=== PATIENT | female | born 1940 | race Caucasian/White ===

== ENCOUNTER 2016-09-18 06:17 | Inpatient (IN) | payer OTHER ==
[~2016-09-18] VITALS: Ht 160 cm; Wt 78.0 kg
[~2016-09-18 06:17] MED LIST: ALPRAZOLAM0.5 M4 PO; CALCIUM600 M2 PO; FISH OIL 1,0001 EACH PO; LEVOTHYROXINE75 MCG PO; MULTI-DAY VITA1 EACH PO; NEURONTIN800 M2 PO; OMEPRAZOLE20 M2 PO; TRIAMTERENE-HC1 EAC3 PO
--- NOTE | 2016-09-18 06:25 | ED CARDIAC/CP/PALPITATIONS ---
History of Present Illness General Chief Complaint: Chest Pain Stated Complaint: CHEST PAIN Source: patient, family Exam Limitations: no limitations Vital Signs & Intake/Output Vital Signs & Intake/Output Vital Signs Date Time Temp Pulse Resp B/P Pulse O2 O2 Flow FiO2 Ox Delivery Rate 09/18 0915 78 18 161/72 09/18 0701 97.8 57 18 178/80 09/18 0637 97.8 57 20 178/80 99 Room Air Allergies Coded Allergies: codeine (UNKNOWN 09/29/15) Triage Nurses Notes Reviewed? yes Onset: Gradual Duration: hour(s): Timing: recent history Location: central Radiation: no radiation Activities at Onset: sleep Prior Chest Pain/Card Workup: no prior chest pain Associated Symptoms: chest wall pain HPI: 76-year-old woman with a history of hypertension and fibromyalgia presents with parasternal chest pain since 3 AM (the past 3-1/2 hours). She notes that the pain feels sharp in nature. It is nonradiating. She has no shortness of breath, back pain, diaphoresis. She is otherwise well. (YULISSA DE LA ROSA,DANIELA Mayes) Reconcile Medications Alprazolam 0.5 MG TABLET 1 TAB PO PRN ANXIETY (Reported) Amlodipine Besylate 5 MG TABLET 1 TAB PO DAILY HEART (Reported) Calcium Carbonate (Calcium) 600 MG TABLET 1 TAB PO DAILY SUPPLEMENT (Reported ) Gabapentin (Neurontin) 800 MG TABLET 1 TAB PO BID UNKNOWN (Reported) Glucosamine/Chondroitin/Vit D3 (Gtvjlpwl-Rufcld-Ohb D3 Tab) 750 MG-600 MG-500 UNIT TABLET 1 TAB PO DAILY SUPPLEMENT (Reported) Levothyroxine Sodium 75 MCG TABLET 1 TAB PO DAILY AC THYROID (Reported) Multivitamin (Multi-Day Vitamins) 1 EACH TABLET 1 TAB PO DAILY SUPPLEMENT ( Reported) [place]-3 Fatty Acids/Fish Oil (Fish Oil 1,000 MG Capsule) 340 MG-1,000 MG CAPSULE 1 CAP PO DAILY SUPPLEMENT (Reported) Omeprazole 20 MG CAPSULE.DR 1 CAP PO DAILY REFLUX (Reported) Triamterene/Hydrochlorothiazid (Triamterene-Hctz 37.5-25 MG Cp) 1 EACH CAPSULE 1 CAP PO DAILY BP (Reported) (LIANA DE LA ROSA,SULMA) Past History Travel History Traveled to [place] past 21 day No Medical History Any Pertinent Medical History? 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 No (YULISSA DE LA ROSA,DANIELA Mayes) Review of Systems Review of Systems Constitutional: Reports: no symptoms. EENTM: Reports: no symptoms. Respiratory: Reports: no symptoms. Cardiovascular: Reports: no symptoms. GI: Reports: no symptoms. Genitourinary: Reports: no symptoms. Musculoskeletal: Reports: no symptoms. Skin: Reports: no symptoms. Neurological/Psychological: Reports: no symptoms. Hematologic/Endocrine: Reports: no symptoms. Immunologic/Allergic: Reports: no symptoms. All Other Systems: Reviewed and Negative (YULISSA DE LA ROSA,DANIELA Mayes) Physical Exam Physical Exam General Appearance: well developed/nourished, mild distress Head: atraumatic, normal appearance Eyes: Bilateral: normal appearance. Ears, Nose, Throat: normal pharynx, normal ENT inspection Neck: normal inspection, supple, full range of motion Respiratory: normal breath sounds, no respiratory distress, parasternal chest wall tenderness. Cardiovascular: regular rate/rhythm Gastrointestinal: normal bowel sounds, soft, non-tender, no organomegaly Back: normal inspection, normal range of motion Extremities: normal inspection, normal capillary refill, normal range of motion, no edema Neurologic/Psych: no motor/sensory deficits, awake, alert, oriented x 3 Skin: intact, normal color Core Measures ACS in differential dx? No Severe Sepsis Present: No Septic Shock Present: No (YULISSA DE LA ROSA,DANIELA Mayes) Core Measures ASA ordered for poss ACS? Yes-ordered (SULMA GAINES MD) Progress Differential Diagnosis: AMI, CHF/pulm edema, costochondritis, pneumonia Plan of Care: Orders Procedure Date/time Status MAGNESIUM 09/19 0600 Active BASIC ELECTROLYTES PLUS BUN&CR 09/19 0600 Active Regular Diet 09/18 L Active TROPONIN LEVEL 09/18 1700 Active EKG 09/18 1700 Active TROPONIN LEVEL 09/18 1200 Active EKG 09/18 1200 Active OXYGEN SETUP (GEN) 09/18 0925 Active Saline Lock 09/18 0925 Active Activity/Ambulation 09/18 0925 Active Pathway - chart 09/18 0854 Active Lab Add-on Test 09/18 0854 Active Code Status 09/18 0854 Active ECHOCARDIOGRAM 09/18 0854 Active EKG 09/18 0821 Active Patient Data 09/18 0800 Active Admit to inpatient 09/18 0755 Active THYROID STIMULATING HORMONE 09/18 0647 Active MAGNESIUM 09/18 0647 Active FREE T4 09/18 0647 Active TROPONIN LEVEL 09/18 0626 Active PARTIAL THROMBOPLASTIN TIME 09/18 0626 Complete PROTHROMBIN TIME 09/18 0626 Complete D-DIMER 09/18 0626 Complete COMPREHENSIVE METABOLIC PANEL 09/18 0626 Active CBC WITHOUT DIFFERENTIAL 09/18 0626 Complete B-TYPE NATRIURETIC PEP (BNP) 09/18 0626 Active EKG 09/18 0618 Active Pathway - chart 09/18 UNK Active House Staff 09/18 UNK Active Weight 09/18 UNK Active VTE Mechanical Prophylaxis 09/18 UNK Active Vital Signs 09/18 UNK Active Intake & Output 09/18 UNK Active CASE MANAGEMENT CONSULT 09/18 UNK Active Current Medications Sig/Omid Start time Last Medication Dose Stop Time Status Admin Amlodipine Besylate 5 MG DAILY 09/19 1000 UNVr (Norvasc) Aspirin 81 MG DAILY 09/19 1000 UNVr (Aspirin) Triamterene/HCTZ 1 CAP DAILY 09/19 1000 UNVr (Dyazide) Gabapentin 800 MG BID 09/18 1000 UNVr (Neurontin) Multivitamins 1 TAB DAILY 09/18 1000 UNVr Therapeutic (Theragran-M Vitamins Tabs) Omeprazole 20 MG DAILY 09/18 1000 UNVr (Prilosec) Acetaminophen 650 MG Q6P PRN 09/18 0900 UNVr (Tylenol) Alprazolam 0.5 MG DAILY NEEDED 09/18 0900 UNVr (Xanax) 09/25 0859 Ibuprofen 600 MG Q6P PRN 09/18 0900 UNVr (Motrin) Potassium Chloride 10 MEQ Q1H 09/18 0900 AC 09/18 1001 Levothyroxine Sodium 0.075 MG DAILY AC 09/18 0856 UNVr (Synthroid) Laboratory Tests 09/18/16 0647: Anion Gap 11, Estimated GFR > 60, BUN/Creatinine Ratio 26.7 H, Glucose 129 H, Calcium 9.4, Magnesium Pending, Total Bilirubin 0.6, AST 30, ALT 34, Alkaline Phosphatase 183 H, Troponin I 0.39 *H, Gsu-K-Zxebvsdjvqp Pept 316 H, Total Protein 7.2, Albumin 4.2, Globulin 3.0, Albumin/Globulin Ratio 1.4, TSH Pending, Free T4 Pending, PT 10.9, INR 1.04, APTT 32, D-Dimer 278 H, CBC w Diff NO MAN DIFF REQ, RBC 4.97, MCV 91.6, MCH 30.7, RDW 12.9, MPV 7.9, Gran % 81.2 H, Lymphocytes % 11.1 L, Monocytes % 5.7, Eosinophils % 1.6, Basophils % 0.4, Absolute Granulocytes 5.6, Absolute Lymphocytes 0.8 L, Absolute Monocytes 0.4, Absolute Eosinophils 0.1, Absolute Basophils 0, PUBS MCHC 33.5 Diagnostic Imaging: Viewed by Me: Radiology Read. Discussed w/RAD: Radiology Read. Initial ED EKG: normal axis, normal intervals, normal p-waves, normal QRS complex, normal sinus rhythm Hand-Off Endorsed To: SULMA GAINES MD Endorsed Time: 0700 Pending: labs, Xray (DANIELA DUENAS MD) Repeat EKG: changed (t wave flat 1,L, v2-6) Rhythm Strip: normal sinus rhythm Comments: Diagnostics reviewed and discussed with patient. Cardiology consulted and will hospitalize for NSTEMI. (SULMA GAINES MD) Departure Departure Disposition: STILL A PATIENT Referrals: ROBIN DE LA ROSA,NILESH Monteiro (PCP/Family) Departure Forms: Customer Survey General Discharge Information (DANIELA DUENAS MD) Departure Time of Disposition: 0750 Condition: Fair Clinical Impression Primary Impression: NSTEMI (non-ST elevated myocardial infarction) Secondary Impressions: Chest pain, Hypertension Admission Note Spoke With: NÉSTOR DE LA ROSA PhD,RIVER Wallace Documentation of Exam: Documentation of any treatments & extenuating circumstances including Concerns Regarding Discharge (functional status, medication knowledge or non-compliance, living conditions, etc.) that warrant an admission rather than observation: cardiac monitoring serial lab exam IV heparin cardiology evaluation echocardiogram medication adjustment continuing care discharge planning (SULMA GAINES MD) Critical Care Note Critical Care Note Critical Care Time: non-applicable (DANIELA DUENAS MD) Critical Care Note Critical Care Time: 30-74 min (40) (SULMA GAINES MD)
--- NOTE | 2016-09-18 06:44 | NUR ---
PT TO ED WITH COMPLAINTS OF CP THAT WOKE HER UP THIS MORNING. PT STATES THE PAIN WAS IN HER ENTIRE CHEST AND EPIGASTRIC AREA. PT ALSO STATES THAT SHE HAD SOME FLATULANCE AROUND THIS TIME. PT REPORTS THAT SHE TOOK MAALOX AND GAS PILLS AT HOME WITH NO RELIEF.
--- NOTE | 2016-09-18 07:02 | NUR ---
PT MEDICATED PER EMAR.
--- NOTE | 2016-09-18 07:03 | RADIOLOGY REPORT ---
EXAMINATION: XR PORTABLE CHEST CLINICAL INFORMATION: Chest pain. COMPARISON: None TECHNIQUE: Portable AP view of the chest was obtained. 6:45 AM FINDINGS: No significant abnormality is noted involving the heart, lungs, mediastinum, bony thorax or soft tissues. IMPRESSION: No acute abnormality of the chest.
[2016-09-18 07:09] LABS: ABSOLUTE BASOPHIL COUNT 0 /CUMM (0.0-0.2); ABSOLUTE EOSINOPHIL COUNT 0.1 /CUMM (0.0-0.7); ABSOLUTE GRANULOCYTE CT 5.6 /CUMM (1.4-6.5); ABSOLUTE LYMPH COUNT 0.8 /CUMM (1.2-3.4); ABSOLUTE MONOCYTE COUNT 0.4 /CUMM (0.10-0.60); BASOPHIL % 0.4 % (0.0-2.0); EOSINOPHIL % 1.6 % (0-5); GRANULOCYTE % 81.2 % (42.2-75.2); HEMATOCRIT 45.5 % (37-47); MEAN CORPUSCULAR HGB 30.7 PG (27.0-31.0); MEAN CORPUSCULAR HGB CONC 33.5 G/DL (33.0-37.0); MEAN CORPUSCULAR VOLUME 91.6 FL (81.0-99.0); MEAN PLATELET VOLUME 7.9 FL (7.4-10.4); PLATELET COUNT 222 /CUMM (130-400); RBC DISTRIBUTION WIDTH 12.9 % (11.5-14.5); RED BLOOD CELL CT 4.97 /CUMM (4.20-5.40); WHITE BLOOD CELL COUNT 6.9 /CUMM (4.8-10.8)
--- NOTE | 2016-09-18 07:16 | NUR ---
REPORT GIVEN TO ISAEL CONN.
[2016-09-18 07:21] LABS: PT 10.9 SEC (9.4-12.5); PTT 32 SEC (25-37)
--- NOTE | 2016-09-18 07:24 | NUR ---
MORE BLANKETS GIVEN AT THIS TIME, CLOTHING PUT INTO BELONGINGS BAG.
--- NOTE | 2016-09-18 07:32 | NUR ---
PT C/O NAUSEA BASIN GIVEN, REMOTE FOR TV ALSO GIVEN AT THIS TIME.
--- NOTE | 2016-09-18 07:43 | NUR ---
CRITICAL TEST RESULTS [id number] KARLI LYONS 76 F TESTS AND RESULTS: TROP 0.39 Results received and read back by: ADAN CARDENAS Results received date and time: 09/18/16 0743 The following provider was notified of the results, and read the results back: DR. GAINES Notified date and time: 09/18/16 at 0740
[2016-09-18] MEDS ORDERED: GLUCOSAM-CHOND1 EACH PO (08:12)
[2016-09-18] MEDS ORDERED: AMLODIPINE BESYL5 M1 PO (08:13)
--- NOTE | 2016-09-18 08:32 | NUR ---
DR ALEXANDER AT BEDSIDE FOR EVAL, SECOND EKG DONE BY THIS MST.
--- NOTE | 2016-09-18 08:50 | History & Physical ---
General Information and HPI MD Statement: I have seen and personally examined KARLI LYONS and documented this H&P. The patient is a 76 year old F who presented with a patient stated chief complaint of [chest pain]. History of Present Illness: This is a 76-year-old lady with a past history significant for hypertension, anxiety, hypothyroidism and GERD that presented to the emergency room after waking up at 3 AM resenting with chest pain. Patient states that around 3 AM the chest pain woke her up she had this dull 7 out of 10 nonradiating pain. Did admit to having some diaphoresis. Subsequently she came to the emergency room and was found to have a positive troponin and EKG suggestive of NSTEMI. In the ER she was started on a heparin drip, sublingual nitroglycerin which rapidly alleviated the pain, Vasotec injection because of hypertension and her daily schedule doses of medications. She has been given a full aspirin and Plavix by the ER staff. At present she remains chest pain-free. She denies any diagnosed history of coronary artery disease. Allergies/Medications Allergies: Coded Allergies: codeine (UNKNOWN 09/29/15) Home Med list Alprazolam 0.5 MG TABLET 1 TAB PO PRN ANXIETY (Reported) Amlodipine Besylate 5 MG TABLET 1 TAB PO DAILY HEART (Reported) Calcium Carbonate (Calcium) 600 MG TABLET 1 TAB PO DAILY SUPPLEMENT (Reported ) Gabapentin (Neurontin) 800 MG TABLET 1 TAB PO BID UNKNOWN (Reported) Glucosamine/Chondroitin/Vit D3 (Tujdaoix-Awkidk-Ath D3 Tab) 750 MG-600 MG-500 UNIT TABLET 1 TAB PO DAILY SUPPLEMENT (Reported) Levothyroxine Sodium 75 MCG TABLET 1 TAB PO DAILY AC THYROID (Reported) Multivitamin (Multi-Day Vitamins) 1 EACH TABLET 1 TAB PO DAILY SUPPLEMENT ( Reported) [place]-3 Fatty Acids/Fish Oil (Fish Oil 1,000 MG Capsule) 340 MG-1,000 MG CAPSULE 1 CAP PO DAILY SUPPLEMENT (Reported) Omeprazole 20 MG CAPSULE.DR 1 CAP PO DAILY REFLUX (Reported) Triamterene/Hydrochlorothiazid (Triamterene-Hctz 37.5-25 MG Cp) 1 EACH CAPSULE 1 CAP PO DAILY BP (Reported) Past History Travel History Traveled to [place] past 21 day No Medical History Neurological: NONE EENT: NONE Cardiovascular: hypertension Respiratory: NONE Gastrointestinal: GERD Hepatic: NONE Renal: NONE Musculoskeletal: fibromyalgia, MYOPATHY Psychiatric: NONE Endocrine: NONE Blood Disorders: NONE 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 Exam & Diagnostic Data Last 24 Hrs of Vital Signs/I&O Vital Signs Date Time Temp Pulse Resp B/P Pulse O2 O2 Flow FiO2 Ox Delivery Rate 09/18 0701 97.8 57 18 178/80 09/18 0637 97.8 57 20 178/80 99 Room Air Intake & Output 09/18 1600 09/18 0800 09/18 0000 Intake Total 0 Output Total Balance 0 Intake, Oral 0 Patient 169 lb Weight Physical Exam General Appearance Alert, Oriented X3, Cooperative Skin No Rashes HEENT Atraumatic, PERRLA, EOMI Cardiovascular Regular Rate, Normal S1, Normal S2 Lungs Clear to Auscultation, Normal Air Movement Abdomen Normal Bowel Sounds, Soft, No Tenderness Extremities No Clubbing, No Cyanosis, No Edema Last 24 Hrs of Labs/Eliecer: Laboratory Tests 09/18/16 0647: Anion Gap 11, Estimated GFR > 60, BUN/Creatinine Ratio 26.7 H, Glucose 129 H, Calcium 9.4, Total Bilirubin 0.6, AST 30, ALT 34, Alkaline Phosphatase 183 H, Troponin I 0.39 *H, Qsm-M-Tvimgpmator Pept 316 H, Total Protein 7.2, Albumin 4.2, Globulin 3.0, Albumin/Globulin Ratio 1.4, PT 10.9, INR 1.04, APTT 32, D- Dimer 278 H, CBC w Diff NO MAN DIFF REQ, RBC 4.97, MCV 91.6, MCH 30.7, RDW 12.9 , MPV 7.9, Gran % 81.2 H, Lymphocytes % 11.1 L, Monocytes % 5.7, Eosinophils % 1.6, Basophils % 0.4, Absolute Granulocytes 5.6, Absolute Lymphocytes 0.8 L, Absolute Monocytes 0.4, Absolute Eosinophils 0.1, Absolute Basophils 0, PUBS MCHC 33.5 Diagnostic Data EKG Results Rate 62, per 156, QRS 86, QTC 416, sinus rhythm, T-wave flattening noticed in leads 2, aVF, V3 through V6 CXR Results PATIENT: KARLI LYONS PRESENT AGE: 76 PATIENT ACCOUNT NO: [id number] : 42 LOCATION: ER ORDERING PHYSICIAN: DANIELA DUENAS MD SERVICE DATE: 09/18/16 EXAM TYPE: RAD - XRY-PORTABLE CHEST XRAY EXAMINATION: XR PORTABLE CHEST CLINICAL INFORMATION: Chest pain. COMPARISON: None TECHNIQUE: Portable AP view of the chest was obtained. 6:45 AM FINDINGS: No significant abnormality is noted involving the heart, lungs, mediastinum, bony thorax or soft tissues. IMPRESSION: No acute abnormality of the chest. DICTATED BY: CLAIRE NICHOLE MD DATE/TIME DICTATED:09/18/16658 CLINICAL PROGRAM COORDINATOR:ARIC DATE/TIME TRANSCRIBED:09/18/16658 CONFIDENTIAL, DO NOT COPY WITHOUT APPROPRIATE AUTHORIZATION. <Electronically signed in Other Vendor System> SIGNED BY: CLAIRE NICHOLE MD 09/18/16 0703 Assessment/Plan Assessment: Assessment- 1. NSTEMI, trop 0.39 2. Hypokalemia 3. History of hypertension 4. History of anxiety 5. History of hypothyroidism Plan- Telemetry admission Trend troponin and EKG Daily weights Strict intake and output Echocardiogram Vitals per protocol Aspirin, Plavix, heparin drip all of these have been started by the ER Continue medical management for other chronic issues Replete potassium Check magnesium and thyroid studies Pain pathway Heart healthy diet DVT prophylaxis being addressed with heparin drip Full code As Ranked By This Provider Problem List: 1. NSTEMI (non-ST elevated myocardial infarction) 2. Hypertension 3. Chest pain Core Measures/Miscellaneous Acute Coronary Syndrome ACS Diagnosis: Yes NEREYDA/ARB For EF <40% Yes ASA W/I 24hr of admit Yes Beta-Ilana W/I 24hrs No No Beta-Ilana d/t Bradycardia LDL assessed W/I 24 hrs Yes Currently on Statin Yes Cerebrovascular Accident CVA/TIA Diagnosis: No Congestive Heart Failure CHF Diagnosis: No Venous Thromboembolism VTE Risk Factors: Age > 40 No [facility] VTE prophylaxis d/t: No contraindications No VTE Pharm Prophylaxis d/t: No contraindications VTE Diagnosis: No VTE Type: NONE VTE Confirmed by (Test): NONE Severe Sepsis Severe Sepsis Present: No Septic Shock Septic Shock Present: No Miscellaneous Documentation Attending Case Discussed With: DR. PALM Primary Care Physician: NILESH KELLY MD Patient sees these Specialists NONE Level of Patient Care: Telemetry Resident Review Statement Resident Statement: examined this patient, discussed with transportation logistics internship
--- NOTE | 2016-09-18 09:17 | NUR ---
PT HAS BED ASSIGNMENT 188-1. RN NOTIFIED.
--- NOTE | 2016-09-18 11:03 | Cons- Cardiology ---
General Information and HPI Consulting Request Date of Consult: 09/18/16 Requested By: NÉSTOR DE LA ROSA PhD,RIVER Wallace History of Present Illness: Tisha is a 76 year old female with history of hypertension and GERD who presents with chest pain. She noted atypical fatigue over the past few days. Last evening she was awakended from sleep by severe, non-radiating, chest burning and pressure. This discomfort was associated with eructation, mild nausea and shortness of breath. She denies any significant lightheadedness or palptiations. In the ER this patient was found to have positive cardiac enzymes. She currently feels improved on NTG paste. Allergies/Medications Allergies: Coded Allergies: codeine (UNKNOWN 09/29/15) Home Med List: Alprazolam 0.5 MG TABLET 1 TAB PO PRN ANXIETY (Reported) Amlodipine Besylate 5 MG TABLET 1 TAB PO DAILY HEART (Reported) Calcium Carbonate (Calcium) 600 MG TABLET 1 TAB PO DAILY SUPPLEMENT (Reported ) Gabapentin (Neurontin) 800 MG TABLET 1 TAB PO BID UNKNOWN (Reported) Glucosamine/Chondroitin/Vit D3 (Mxwrjovx-Xrduey-Cgg D3 Tab) 750 MG-600 MG-500 UNIT TABLET 1 TAB PO DAILY SUPPLEMENT (Reported) Levothyroxine Sodium 75 MCG TABLET 1 TAB PO DAILY AC THYROID (Reported) Multivitamin (Multi-Day Vitamins) 1 EACH TABLET 1 TAB PO DAILY SUPPLEMENT ( Reported) [place]-3 Fatty Acids/Fish Oil (Fish Oil 1,000 MG Capsule) 340 MG-1,000 MG CAPSULE 1 CAP PO DAILY SUPPLEMENT (Reported) Omeprazole 20 MG CAPSULE.DR 1 CAP PO DAILY REFLUX (Reported) Triamterene/Hydrochlorothiazid (Triamterene-Hctz 37.5-25 MG Cp) 1 EACH CAPSULE 1 CAP PO DAILY BP (Reported) Review of Systems Review of Systems: generalized achiness Past History Travel History Traveled to [place] past 21 day No Medical History Neurological: NONE EENT: NONE Cardiovascular: hypertension Respiratory: NONE Gastrointestinal: GERD Hepatic: NONE Renal: NONE Musculoskeletal: fibromyalgia, peripheral neuropathy Psychiatric: NONE Endocrine: hypothyroidism Blood Disorders: NONE Cancer(s): 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 No premature coronary artery disease Psychosocial History Smoking Status: Former Smoker (quit 50 years ago) ETOH Use: denies use Illicit Drug Use: denies illicit drug use Exam & Diagnostic Data Vital Signs and I&O Vital Signs Date Time Temp Pulse Resp B/P Pulse O2 O2 Flow FiO2 Ox Delivery Rate 09/18 0915 78 18 161/72 09/18 0900 74 18 161/77 99 Room Air 09/18 0701 97.8 57 18 178/80 09/18 0637 97.8 57 20 178/80 99 Room Air Intake & Output 09/18 1600 09/18 0800 09/18 0000 09/17 1600 09/17 0800 09/17 0000 Intake Total 0 Output Total Balance 0 Intake, Oral 0 Patient 169 lb Weight Physical Exam: General: WD/ overweight female in NAD; alert and oriented x 3 HEENT: NC/ AT, PERRL, EOMI, clear oropharynx Neck: no JVD, no carotid bruit Heart: RRR w/o murmur Lungs: clear bilaterally Abdomen: soft, NT, +ve bowel sounds Extemities: no edema Diagnostic Data EKG Results sinus rhythm with non-specific T wave changes Assessment/Plan Assessment/Plan * This patient has anginal symptoms along with positive troponins that are consistent with myocardial ischemia and NSTEMI. I suspect that some of her prior GI symptoms were truly related to myocardial ischemia as well. * Follow cardiac enzymes until they peak and obtain an echocardiogram. * Replete potassium. * Begin aspirin 325mg daily, Plavix 75mg daily after a 300mg bolus and IV heparin. * Begin Atorvastatin 40mg daily. * Stop diuretics and begin Lisinopril 20mg daily and Metoprolol 12.5mg BID and NTG paste 1/2 inch Q 6 hours. * Anticipate a cardiac cath tomorrow. Consult Acknowledgment - Thank you for your consult request.
[2016-09-18 11:53] VITALS: BP 132/80
[2016-09-18] MEDS ORDERED: HEPARIN-1/25000 UNI1 IV (14:14)
--- NOTE | 2016-09-18 14:18 | Patient Discharge Instructions ---
Discharge Instructions General Discharge Information You were seen/treated for: Acute Coronary syndrome Special Instructions: Please call and Make a follow-up with your primary care physician within one week after discharge Acute Coronary Syndrome Inclusion Criteria At DC or during hospital stay patient has or had the following: ACS DIAGNOSIS Yes Discharge Core Measures Meds if any: Prescribed or Continued at Discharge NEREYDA/ARB if EF <40% Yes Aspirin Yes Beta-Ilana Yes Statin Yes Meds if any: NOT Prescribed or Continued at Discharge Congestive Heart Failure Inclusion Criteria At DC or during hospital stay patient has or had the following: CHF DIAGNOSIS No Discharge Core Measures Meds if any: Prescribed or Continued at Discharge Meds if any: NOT Prescribed or Continued at Discharge Cerebrovascular accident Inclusion Criteria At DC or during hospital stay patient has or had the following: CVA/TIA Diagnosis No Discharge Core Measures Meds if any: Prescribed or Continued at Discharge Meds if any: NOT Prescribed or Continued at Discharge Venous thromboembolism Inclusion Criteria VTE Diagnosis No VTE Type NONE VTE Confirmed by (Test) NONE Discharge Core Measures - Per Current guidelines, there needs to be overlap - treatment for the first 5 days of Warfarin therapy. - If discharged on Warfarin prior to 5 days of - overlap therapy, the patient will need to be - assessed for post discharge needs including - *Post discharge parental anticoagulation - *Warfarin and/or parental anticoagulation education - *Follow up date to check INR post discharge At least 5 days overlap therapy as Inpatient No Meds if any: Prescribed or Continued at Discharge Note: Overlap Therapy is Warfarin and Anticoagulant Meds if any: NOT Prescribed or Continued at Discharge
[2016-09-18 14:24] VITALS: BP 160/70
--- NOTE | 2016-09-18 14:34 | Discharge Summary ---
Visit Information Visit Dates Admission Date: 09/18/16 Discharge Date: 09/18/2016 Hospital Course Course Attending Physician: NÉSTOR DE LA ROSA PhD,RIVER Wallace Primary Care Physician: ROBIN DE LA ROSA,NILESH Monteiro Hospital Course: This is a 76 year old female with past medical history of hypertension and GERD who presented with chest pain. She noted atypical fatigue over the past few days. The evening before presentation she was awakended from sleep by severe, non-radiating, chest burning and pressure. This discomfort was associated with mild nausea and shortness of breath. She denied any significant light headedness or palptiations. In the ER this patient was found to have positive cardiac enzymes. She was admitted to the telemetry floor and he managed her for the following conditions. Acute coronary syndrome Upon arrival in the floor the patient reported complete resolution of her chest pain or pin after receiving the NTG paste. The plan was to continue to do serial troponin and EKG. Patient was started on lisinopril and her home diuretics was held, started on metoprolol 12.5, starting 40 mg, heparin drip and clopidogrel 75 mg. Repeated troponin had increased from 0.39-17.9. The patient continued to remain symptomatic without chest pain or shortness of breath they were new EKG changes with T-wave inversion and upswing of the ST segment. It is being transferred to [facility] for cardiac catheterization Hypothyroidism Continue with home dose of levothyroxine 75 g Anxiety Patient reports no symptoms She was maintained on her home dose of Xanax 0.5 mg daily as needed Allergies: Coded Allergies: codeine (UNKNOWN 09/29/15) Pertinent Lab Results: Laboratory Tests 09/18 09/18 1220 0647 Chemistry Sodium (137 - 145 mmol/L) 140 Potassium (3.5 - 5.1 mmol/L) 3.2 L Chloride (98 - 107 mmol/L) 101 Carbon Dioxide (22 - 30 mmol/L) 28 Anion Gap (5 - 16) 11 BUN (7 - 17 mg/dL) 24 H Creatinine (0.5 - 1.0 mg/dL) 0.9 Estimated GFR (>60 ml/min) > 60 BUN/Creatinine Ratio (7 - 25 %) 26.7 H Glucose (65 - 99 mg/dL) 129 H Calcium (8.4 - 10.2 mg/dL) 9.4 Magnesium (1.6 - 2.3 mg/dL) 1.9 Total Bilirubin (0.2 - 1.3 mg/dL) 0.6 AST (14 - 36 U/L) 30 ALT (9 - 52 U/L) 34 Alkaline Phosphatase (<127 U/L) 183 H Troponin I (< 0.11 ng/ml) 17.90 *H 0.39 *H Cvy-R-Xlixolohrbo Pept (<125 pg/mL) 316 H Total Protein (6.3 - 8.2 g/dL) 7.2 Albumin (3.5 - 5.0 g/dL) 4.2 Globulin (1.9 - 4.2 gm/dL) 3.0 Albumin/Globulin Ratio (1.1 - 2.2 %) 1.4 Triglycerides (<150 mg/dL) 136 Cholesterol (<200 MG/DL) 184 LDL Cholesterol, Calc (65 - 129 mg/dL) 100 HDL Cholesterol (40 - 60 mg/dL) 57 Cholesterol/HDL Ratio (0.00 - 4.23 %) 3 TSH (0.270 - 4.200 uIU/mL) 1.720 Free T4 (0.78 - 2.44 ng/dL) 1.30 Coagulation PT (9.4 - 12.5 SEC) 10.9 INR (0.90 - 1.19) 1.04 APTT (25 - 37 SEC) 32 D-Dimer (70 - 232 ng/ml) 278 H Hematology CBC w Diff NO MAN DIFF REQ WBC (4.8 - 10.8 /CUMM) 6.9 RBC (4.20 - 5.40 /CUMM) 4.97 Hgb (12.0 - 16.0 G/DL) 15.2 Hct (37 - 47 %) 45.5 MCV (81.0 - 99.0 FL) 91.6 MCH (27.0 - 31.0 PG) 30.7 RDW (11.5 - 14.5 %) 12.9 Plt Count (130 - 400 /CUMM) 222 MPV (7.4 - 10.4 FL) 7.9 Gran % (42.2 - 75.2 %) 81.2 H Lymphocytes % (20.5 - 51.1 %) 11.1 L Monocytes % (1.7 - 9.3 %) 5.7 Eosinophils % (0 - 5 %) 1.6 Basophils % (0.0 - 2.0 %) 0.4 Absolute Granulocytes (1.4 - 6.5 /CUMM) 5.6 Absolute Lymphocytes (1.2 - 3.4 /CUMM) 0.8 L Absolute Monocytes (0.10 - 0.60 /CUMM) 0.4 Absolute Eosinophils (0.0 - 0.7 /CUMM) 0.1 Absolute Basophils (0.0 - 0.2 /CUMM) 0 PUBS MCHC (33.0 - 37.0 G/DL) 33.5 Disposition Summary Disposition Principal Diagnosis: Acute coronary syndrome Additional Diagnosis: Hypothyroidism Anxiety Hypertension Discharge Disposition: other general hospital Discharge Instructions General Discharge Information Code Status: Full Code Patient's Diet: Nothing by mouth Patient's Activity: As tolerated Follow-Up Instructions/Appts: Please call and make a follow-up with her primary care physician within one week after discharge Medications at Discharge Discharge Medications: Stop taking the following medications: Triamterene/Hydrochlorothiazid (Triamterene-Hctz 37.5-25 MG Cp) 1 EACH CAPSULE ORAL DAILY Continue taking these medications: Calcium Carbonate (Calcium) 600 MG TABLET 1 Tablet ORAL DAILY Comments: NOT GIVEN IN HOSPITAL Multivitamin (Multi-Day Vitamins) 1 EACH TABLET 1 Tablet ORAL DAILY Comments: DOCUMENTED PER CMR DURING PRE-SX INTERVIEW [place]-3 Fatty Acids/Fish Oil (Fish Oil 1,000 MG Capsule) 340 MG-1,000 MG CAPSULE 1 Capsule ORAL DAILY Alprazolam (Alprazolam) 0.5 MG TABLET 1 Tablet ORAL as needed for ANXIETY Comments: NOT GIVEN IN HOSPITAL Gabapentin (Neurontin) 800 MG TABLET 1 Tablet ORAL TWICE DAILY Comments: Last Taken: 09/18 Time: 1100 Levothyroxine Sodium (Levothyroxine Sodium) 75 MCG TABLET 1 Tablet ORAL DAILY BEFORE BREAKFAST Omeprazole (Omeprazole) 20 MG CAPSULE.DR 1 Capsule ORAL DAILY Comments: DOCUMENTED PER CMR DURING PRE-SX INTERVIEW Glucosamine/Chondroitin/Vit D3 (Sdgsfhje-Ziojjs-Idw D3 Tab) 750 MG-600 MG-500 UNIT TABLET 1 Tablet ORAL DAILY Comments: NOT GIVEN IN HOSPITAL Amlodipine Besylate (Amlodipine Besylate) 5 MG TABLET 1 Tablet ORAL DAILY Qty = 90 Comments: Last Taken: 09/18 Time: 0700 Start taking the following new medications: Clopidogrel Bisulfate (Plavix) 75 MG TABLET 75 Milligram ORAL DAILY Qty = 60 No Refills Metoprolol Tartrate (Metoprolol Tartrate) 25 MG TABLET 12.5 Milligram ORAL TWICE DAILY Qty = 60 No Refills Lisinopril (Lisinopril) 20 MG TABLET 20 Milligram ORAL DAILY Qty = 60 No Refills Aspirin (Ecotrin*) 325 MG TABLET. 325 Milligram ORAL DAILY Qty = 60 No Refills Heparin (Heparin-1/2NS 25,000 Units/500) 25,000 UNIT/500 ML (50 UNIT/ML) IV.SOLN 840 Units INTRAVEN CONTINUOUS INFUSION Qty = 1 No Refills Copies To: ROBIN DE LA ROSA,NILESH Monteiro
[2016-09-18] MEDS ORDERED: ASPIRIN EC325 M2 PO (15:25)
[2016-09-18] MEDS ORDERED: METOPROLOL TART25 M1 PO (15:26)
[2016-09-18] MEDS ORDERED: LISINOPRIL20 M1 PO (15:26)
[2016-09-18] MEDS ORDERED: PLAVIX75 M1 PO (15:26)
[2016-09-18 16:17] LABS: PTT 86 SEC (25-37)
== END 2016-09-18 15:50 | disposition short-term general hospital (02) | DRG 282 ==
LOC: ENRESERVTM → ENRESERVDT → ERH 06:17 → ERHI 07:55 → 1NO 11:30
PROVIDERS: Pediatrics; ADMIT Internal Medicine Interventional Cardiology
DX: I21.4 Non-ST elevation (NSTEMI) myocardial infarction (principal); G62.9 Polyneuropathy, unspecified; I10 Essential (primary) hypertension; K21.9 Gastro-esophageal reflux disease without esophagitis; Z87.891 Personal history of nicotine dependence; E03.9 Hypothyroidism, unspecified; M79.7 Fibromyalgia; F41.9 Anxiety disorder, unspecified
CPT/HCPCS: 1NP; 93005; 93010; 96374; J1644; J1885; J3490